=== PATIENT | male | born 1950 | race Caucasian/White ===

== ENCOUNTER 2017-04-15 23:27 | Inpatient (IN) | payer MEDICAID, OTHER ==
[~2017-04-15] VITALS: Ht 177.8 cm; Wt 127.0 kg
[2017-04-16 00:12] LABS: Basophils # (auto) 0.1 uL; Eosinophils # (auto) 0 uL
[2017-04-16 00:14] LABS: Basophils % (auto) 0.7 % (0.0-2.0); Eosinophils % (auto) 0.1 % (0.0-7.0); Hemoglobin 19.5 g/dL (13.5-17.5); Lymphocytes # (auto) 0.6 uL; Mean Corpuscular Hemoglobin 34.6 pg (28.0-32.0); Mean Corpuscular Hgb Conc. 34.4 g/dL (32.0-36.0); Mean Corpuscular Volume 100.3 fL (80.0-100.0); Monocytes % (auto) 10.7 % (0.0-12.0); Neutrophils # (auto) 7.4 uL; Neutrophils % (auto) 81.5 % (37.0-80.0); Nucleated Red Blood Cells % 0.4 %; Platelet Count (auto) 144 10^3/uL (140-450); Red Blood Cells 5.64 10^6/uL (4.5-5.90); Red Cell Distribution Width 13.6 % (11.8-14.3)
[2017-04-16 00:17] LABS: Hematocrit 56.6 % (41.0-53.0)
[2017-04-16 00:25] LABS: Albumin 3.6 g/dL (3.4-5.0); Calcium 8.3 mg/dL (8.5-10.1); Magnesium 2.4 mg/dL (1.6-2.6); Potassium 4.4 mmol/L (3.5-5.1)
[2017-04-16 00:30] LABS: Bilirubin, Total 0.3 mg/dL (0.2-1.0); INR 1.14 (0.9-1.15); Partial Thromboplastin Time 36.8 sec (22.64-33.71); Prothrombin Time 12.4 sec (9.37-12.3); Total Protein 7.4 g/dL (6.4-8.2)
[2017-04-16] MEDS ORDERED: methylPREDNISolone SOD SUCC 125 MG/2 ML VL IV ONE (01:00)
[2017-04-16] MEDS ORDERED: diphenhdrAMINE HCL 50 MG/1 ML VL IV ONE (01:00)
[2017-04-16] MEDS ORDERED: SODIUM CHLORIDE 0.9% 500 ML IV ONE (01:45)
[2017-04-16] MEDS ORDERED: cefTRIAXone 1GM/10ml IVPUSH 10 ML IV ONE (01:45)
[2017-04-16] MEDS ORDERED: NITROGLYCERIN 0.4 MG SL TAB SL PRN (06:00)
[2017-04-16] MEDS ORDERED: cloNIDine HCL 0.1 MG TAB PO PRN (06:00)
[2017-04-16] MEDS ORDERED: MORPHINE SULF INJ 2 MG/ML SYRINGE 1ML IV PRN (06:00)
[2017-04-16] MEDS ORDERED: DOCUSATE SOD 100 MG CAP PO PRN (06:00)
[2017-04-16] MEDS ORDERED: ONDANSETRON HCL 4 MG/2 ML VIAL IV PRN (06:00)
[2017-04-16] MEDS ORDERED: ACETAMINOPHEN 325 MG TAB PO PRN (06:00)
[2017-04-16] MEDS: OSELTAMIVIR 75 MG CAP PO SCH ×3 (06:18→21:54)
[2017-04-16] MEDS: IPRATROPIUM BROM 0.5 MG/2.5ML INH SOL NEB SCH ×5 (06:55→22:34)
[2017-04-16] MEDS: cefTRIAXone 1GM/10ml IVPUSH 10 ML IV SCH (09:45)
[2017-04-16] MEDS: NICOTINE 14 MG/24HR TOPICAL PATCH TD SCH (10:00)
[2017-04-16] MEDS: CARVEDILOL 3.125 MG TAB PO SCH ×2 (10:42→21:53)
[2017-04-16] MEDS: ENOXAPARIN SOD 40 MG/0.4 ML SYRINGE SC SCH (10:43)
[2017-04-16] MEDS: FAMOTIDINE 20 MG TAB PO SCH ×2 (10:43→21:53)
[2017-04-16] MEDS: FUROSEMIDE 20 MG TAB PO SCH (10:43)
[2017-04-16 10:51] VITALS: BP 109/68
[2017-04-16 12:09] LABS: Urine Bacteria NONE SEEN /hpf (None Seen); Urine Blood Negative /uL (Negative); Urine Specific Gravity 1.028 (1.001-1.035); Urine WBC 2 /hpf (0 - 3)
[2017-04-16 19:11] VITALS: BP 113/91
[2017-04-16] MEDS: ALBUTEROL SULF 2.5 MG/0.5ML(0.5%) NEB SOLN NEB PRN ×2 (19:41→22:34)
[2017-04-16 20:00] VITALS: BP 101/59
[2017-04-16] MEDS: ATORVASTATIN 20 MG TAB PO SCH (21:53)
[2017-04-16] MEDS: HYDROcodone-ACET 5/325MG TAB PO PRN (21:54)
[2017-04-16 22:00] VITALS: BP 111/72
[2017-04-17] MEDS: IPRATROPIUM BROM 0.5 MG/2.5ML INH SOL NEB SCH ×6 (02:18→22:37)
[2017-04-17] MEDS: ALBUTEROL SULF 2.5 MG/0.5ML(0.5%) NEB SOLN NEB PRN ×4 (02:18→22:37)
[2017-04-17 05:00] VITALS: BP 109/72
[2017-04-17 06:45] LABS: Basophils # (auto) 0 uL; Basophils % (auto) 0.4 % (0.0-2.0); Eosinophils # (auto) 0 uL; Eosinophils % (auto) 0.1 % (0.0-7.0); Hematocrit 47.4 % (41.0-53.0); Hemoglobin 15.8 g/dL (13.5-17.5); Lymphocytes # (auto) 1.1 uL; Lymphocytes % (auto) 15.5 % (10.0-50.0); Mean Corpuscular Hemoglobin 33.9 pg (28.0-32.0); Mean Corpuscular Hgb Conc. 33.2 g/dL (32.0-36.0); Mean Corpuscular Volume 101.9 fL (80.0-100.0); Monocytes # (auto) 0.9 uL; Monocytes % (auto) 13.4 % (0.0-12.0); Neutrophils # (auto) 4.9 uL; Neutrophils % (auto) 70.6 % (37.0-80.0); Platelet Count (auto) 147 10^3/uL (140-450); Red Blood Cells 4.66 10^6/uL (4.5-5.90); Red Cell Distribution Width 13.2 % (11.8-14.3); White Blood Cell 6.9 10^3/uL (4.4-10.8)
[2017-04-17 07:10] LABS: Albumin 2.9 g/dL (3.4-5.0); BUN/Creatinine Ratio 61.9; Bilirubin, Total 0.3 mg/dL (0.2-1.0); Calcium 7.5 mg/dL (8.5-10.1); Potassium 4.7 mmol/L (3.5-5.1); Total Protein 5.9 g/dL (6.4-8.2)
[2017-04-17 08:00] VITALS: BP 105/66
[2017-04-17] MEDS ORDERED: DEXTROSE (50%) 50ML SYRG IV PRN ×2 (08:30→15:15)
[2017-04-17 09:03] VITALS: BP 105/66
[2017-04-17] MEDS: CARVEDILOL 3.125 MG TAB PO SCH ×2 (10:30→22:00)
[2017-04-17] MEDS: FAMOTIDINE 20 MG TAB PO SCH ×2 (10:30→22:01)
[2017-04-17] MEDS: OSELTAMIVIR 75 MG CAP PO SCH ×2 (10:31→22:01)
[2017-04-17] MEDS: ENOXAPARIN SOD 40 MG/0.4 ML SYRINGE SC SCH (10:32)
[2017-04-17] MEDS: FUROSEMIDE 20 MG TAB PO SCH (10:32)
[2017-04-17] MEDS: cefTRIAXone 1GM/10ml IVPUSH 10 ML IV SCH (10:34)
[2017-04-17] MEDS: NICOTINE 14 MG/24HR TOPICAL PATCH TD SCH (10:35)
[2017-04-17] MEDS ORDERED: InsuLIN REG 1unit/0.01ml Soln (100units/ml) SC SCH ×2 (11:30→22:00)
[2017-04-17] MEDS ORDERED: ACCU-CHEK COMFORT CURVE STRIP VI SCH (11:30)
[2017-04-17 13:28] VITALS: BP 100/66
[2017-04-17] MEDS: glipiZIDE 5 MG TAB PO SCH (13:36)
[2017-04-17] MEDS ORDERED: INSULIN NPH Isophane (HUMAN) 1unit/0.01ml Susp(100units/ml) SC ONE (15:15)
[2017-04-17] MEDS: HYDROcodone-ACET 5/325MG TAB PO PRN (15:39)
[2017-04-17] MEDS: ACCU-CHEK COMFORT CURVE STRIP VI SCH ×2 (18:00→23:46)
[2017-04-17] MEDS: InsuLIN REG 1unit/0.01ml Soln (100units/ml) SC SCH ×2 (18:00→23:46)
[2017-04-17 22:00] VITALS: BP 98/67
[2017-04-17] MEDS: ATORVASTATIN 20 MG TAB PO SCH (22:01)
[2017-04-18] MEDS: ALBUTEROL SULF 2.5 MG/0.5ML(0.5%) NEB SOLN NEB PRN (02:22)
[2017-04-18] MEDS: IPRATROPIUM BROM 0.5 MG/2.5ML INH SOL NEB SCH ×3 (02:22→10:00)
[2017-04-18 05:56] VITALS: BP 108/64
[2017-04-18] MEDS: InsuLIN REG 1unit/0.01ml Soln (100units/ml) SC SCH ×2 (05:56→11:20)
[2017-04-18] MEDS: glipiZIDE 5 MG TAB PO SCH (05:56)
[2017-04-18] MEDS: ACCU-CHEK COMFORT CURVE STRIP VI SCH ×2 (05:56→11:20)
[2017-04-18 08:58] VITALS: BP 91/61
[2017-04-18] MEDS: CARVEDILOL 3.125 MG TAB PO SCH (10:00)
[2017-04-18] MEDS: ENOXAPARIN SOD 40 MG/0.4 ML SYRINGE SC SCH (10:00)
[2017-04-18] MEDS: FUROSEMIDE 20 MG TAB PO SCH (10:00)
[2017-04-18] MEDS: cefTRIAXone 1GM/10ml IVPUSH 10 ML IV SCH (10:02)
[2017-04-18] MEDS: FAMOTIDINE 20 MG TAB PO SCH (10:03)
[2017-04-18] MEDS: OSELTAMIVIR 75 MG CAP PO SCH (10:04)
[2017-04-18] MEDS: NICOTINE 14 MG/24HR TOPICAL PATCH TD SCH (10:04)
[2017-04-18 13:00] VITALS: BP 99/58
== END 2017-04-18 14:08 | disposition home or self-care (01) | DRG 140 ==
LOC: EDBD 23:27 → ER 23:27 → TELE 23:28 → TELE-EAST 04-16 18:45
PROVIDERS: ADMIT Nurse Practitioner; ATTEND Internal Medicine
DX: J44.1 Chronic obstructive pulmonary disease with (acute) exacerbation (principal); J96.20 Acute and chronic respiratory failure, unspecified whether with hypoxia or hypercapnia; I11.0 Hypertensive heart disease with heart failure; I50.9 Heart failure, unspecified; E11.65 Type 2 diabetes mellitus with hyperglycemia; E87.1 Hypo-osmolality and hyponatremia; J10.1 Influenza due to other identified influenza virus with other respiratory manifestations; E86.0 Dehydration; E78.5 Hyperlipidemia, unspecified; E66.01 Morbid (severe) obesity due to excess calories; Z68.41 Body mass index [BMI] 40.0-44.9, adult; Z87.891 Personal history of nicotine dependence
CPT/HCPCS: 36415; 36600; 71045; 80053; 81001; 82805; 82962; 83036; 83605; 83735; 83880; 84484; 85025; 85379; 85610; 85730; 87040; 87400; 93005; 94640; 96361; 96372; 96374; 96375; 96376; J1815

== ENCOUNTER 2021-12-18 17:54 | Inpatient (IN) | payer MEDICARE, OTHER ==
[~2021-12-18] VITALS: Ht 172.7 cm; Wt 80.0 kg
[~2021-12-18 17:54] MED LIST: ALBUAER3 IN; CARV6.2551 PO; CHOL20007 PO; FLAX10003 PO; FURO40TA4 PO; LEVO750T8 PO; LOSA-39 PO; METF-370 PO; MULTTAB99 PO; NIC21P TOP; PANT40T PO; POTA10TA51 PO
[2021-12-18] MEDS ORDERED: IPRATROPIUM BROM 0.5 MG/2.5ML INH SOL NEB ONE (18:30)
[2021-12-18] MEDS ORDERED: ALBUTEROL SULF 2.5 MG/0.5ML(0.5%) NEB SOLN NEB ONE (18:30)
[2021-12-18] MEDS ORDERED: methylPREDNISolone SOD SUCC 125 MG/2 ML VL IV ONE (18:30)
[2021-12-18 19:14] LABS: Basophils # (auto) 0 10 ^3/uL (0-0.2); Eosinophils # (auto) 0.1 10 ^3/uL (0-0.8); Lymphocytes # (auto) 1.1 10 ^3/uL (0.4-5.4); Neutrophils # (auto) 6.4 10 ^3/uL (1.6-8.6); White Blood Cell 8.4 10^3/uL (4.4-10.8)
[2021-12-18 19:16] LABS: Basophils % (auto) 0.5 % (0.0-2.0); Eosinophils % (auto) 1.7 % (0.0-7.0); Hemoglobin 18.6 g/dL (13.5-17.5); Lymphocytes % (auto) 13.1 % (10.0-50.0); Mean Corpuscular Hemoglobin 32.4 pg (28.0-32.0); Mean Corpuscular Hgb Conc. 32.3 g/dL (32.0-36.0); Mean Corpuscular Volume 100.4 fL (80.0-100.0); Monocytes # (auto) 0.8 10 ^3/uL (0-1.3); Monocytes % (auto) 9.1 % (0.0-12.0); Neutrophils % (auto) 75.6 % (37.0-80.0); Nucleated Red Blood Cells % 0.1 %; Red Blood Cells 5.74 10^6/uL (4.5-5.90); Red Cell Distribution Width 15.1 % (11.8-14.3)
[2021-12-18 19:20] LABS: Albumin 4.2 g/dL (3.4-5.0); Calcium 9.2 mg/dL (8.5-10.1); Potassium 4.4 mmol/L (3.5-5.1)
[2021-12-18 19:21] LABS: Hematocrit 57.6 % (41.0-53.0)
[2021-12-18 19:29] LABS: Bilirubin, Total 0.5 mg/dL (0.2-1.0); Total Protein 7.1 g/dL (6.4-8.2)
[2021-12-18] MEDS ORDERED: levoFLOXacin 250 MG TAB PO ONE (19:30)
[2021-12-18] MEDS ORDERED: TEMAZEPAM 15 MG CAP PO PRN (21:15)
[2021-12-18] MEDS ORDERED: ONDANSETRON HCL 4 MG/2 ML VIAL IV PRN (21:15)
[2021-12-18] MEDS ORDERED: ACETAMINOPHEN 325 MG TAB PO PRN (21:15)
[2021-12-18] MEDS ORDERED: AZITHROMYCIN 500MG/ 250ML 250 ML IV ONE (21:15)
[2021-12-18] MEDS ORDERED: NITROGLYCERIN 0.4 MG SL TAB SL PRN (21:15)
[2021-12-18] MEDS ORDERED: ALBUTEROL SULF 2.5 MG/0.5ML(0.5%) NEB SOLN NEB PRN (21:15)
[2021-12-18] MEDS ORDERED: MORPHINE SULFATE INJ 2 MG/ml SYRG IV PRN (21:15)
[2021-12-18 21:30] VITALS: BP 120/88
[2021-12-18] MEDS ORDERED: CARVEDILOL 3.125 MG TAB PO SCH (22:00)
[2021-12-18] MEDS ORDERED: LOSARTAN POTASSIUM 50 MG TAB PO SCH (22:00)
[2021-12-19] MEDS ORDERED: IPRATROPIUM BROM 0.5 MG/2.5ML INH SOL NEB SCH (06:00)
[2021-12-19 06:12] LABS: Basophils # (auto) 0 10 ^3/uL (0-0.2); Eosinophils # (auto) 0 10 ^3/uL (0-0.8); Eosinophils % (auto) 0.1 % (0.0-7.0); Lymphocytes # (auto) 0.4 10 ^3/uL (0.4-5.4); Mean Corpuscular Hgb Conc. 32.4 g/dL (32.0-36.0); Monocytes # (auto) 0.2 10 ^3/uL (0-1.3); Neutrophils # (auto) 5.3 10 ^3/uL (1.6-8.6); Nucleated Red Blood Cells % 0.1 %; White Blood Cell 5.9 10^3/uL (4.4-10.8)
[2021-12-19 06:16] LABS: Basophils % (auto) 0.2 % (0.0-2.0); Hemoglobin 18.2 g/dL (13.5-17.5); Lymphocytes % (auto) 7.2 % (10.0-50.0); Mean Corpuscular Hemoglobin 32.6 pg (28.0-32.0); Mean Corpuscular Volume 100.8 fL (80.0-100.0); Monocytes % (auto) 2.8 % (0.0-12.0); Neutrophils % (auto) 89.7 % (37.0-80.0); Red Blood Cells 5.59 10^6/uL (4.5-5.90); Red Cell Distribution Width 15.1 % (11.8-14.3)
[2021-12-19 06:30] LABS: BUN/Creatinine Ratio 26.5; Calcium 8.7 mg/dL (8.5-10.1); Potassium 4.9 mmol/L (3.5-5.1)
[2021-12-19 06:50] LABS: Hematocrit 56.3 % (41.0-53.0)
[2021-12-19] MEDS ORDERED: LEVO500T31 PO (06:55)
[2021-12-19] MEDS ORDERED: METH4PAK PO (06:55)
[2021-12-19 09:00] VITALS: BP 130/72
[2021-12-19] MEDS ORDERED: POTASSIUM CHL 10 Meq TABLET PO SCH (10:00)
[2021-12-19] MEDS ORDERED: PANTOPRAZOLE 40 MG TAB PO SCH (10:00)
[2021-12-19] MEDS ORDERED: AZITHROMYCIN 500MG/ 250ML 250 ML IV SCH (10:00)
[2021-12-19] MEDS ORDERED: ENOXAPARIN SOD 40 MG/0.4 ML SYRINGE SC SCH (10:00)
[2021-12-19] MEDS ORDERED: FUROSEMIDE 40 MG TAB PO SCH (10:00)
[2021-12-19] MEDS ORDERED: DexAMETHasone SOD PHOS 10MG/1ML VIAL INJ IV SCH (10:00)
== END 2021-12-19 09:15 | disposition left against medical advice (07) | DRG 189 ==
LOC: EDBD 17:54 → ER 18:03 → TELE 21:25
PROVIDERS: ADMIT Nurse Practitioner; ATTEND Internal Medicine
DX: J96.21 Acute and chronic respiratory failure with hypoxia (principal); J44.1 Chronic obstructive pulmonary disease with (acute) exacerbation; J44.0 Chronic obstructive pulmonary disease with (acute) lower respiratory infection; I11.0 Hypertensive heart disease with heart failure; E11.9 Type 2 diabetes mellitus without complications; I50.9 Heart failure, unspecified; Z20.822 Contact with and (suspected) exposure to COVID-19; E78.5 Hyperlipidemia, unspecified; Z87.891 Personal history of nicotine dependence
CPT/HCPCS: 36415; 36600; 71045; 80048; 80053; 82805; 83605; 83615; 83880; 84484; 85025; 87804; 93005; 94640; 96365; 96366; G0378

== ENCOUNTER 2022-05-17 12:27 | Emergency (ER) | payer OTHER ==
[~2022-05-17] VITALS: Ht 172.7 cm; Wt 84.9 kg
[~2022-05-17 12:27] MED LIST changes: +LEVO500T31 PO; +METH4PAK PO
[2022-05-17 13:15] LABS: Basophils # (auto) 0 10 ^3/uL (0-0.2); Eosinophils # (auto) 0.1 10 ^3/uL (0-0.8); Neutrophils # (auto) 6.1 10 ^3/uL (1.6-8.6); Nucleated Red Blood Cells % 0.1 %; Red Cell Distribution Width 14.3 % (11.8-14.3); White Blood Cell 8.2 10^3/uL (4.4-10.8)
[2022-05-17 13:17] LABS: Basophils % (auto) 0.4 % (0.0-2.0); Eosinophils % (auto) 1.5 % (0.0-7.0); Hematocrit 55.5 % (41.0-53.0); Hemoglobin 18.6 g/dL (13.5-17.5); Lymphocytes # (auto) 1.3 10 ^3/uL (0.4-5.4); Lymphocytes % (auto) 15.9 % (10.0-50.0); Mean Corpuscular Hemoglobin 34.1 pg (28.0-32.0); Mean Corpuscular Hgb Conc. 33.5 g/dL (32.0-36.0); Monocytes # (auto) 0.7 10 ^3/uL (0-1.3); Neutrophils % (auto) 74.2 % (37.0-80.0); Red Blood Cells 5.44 10^6/uL (4.5-5.90)
[2022-05-17 13:32] LABS: Albumin 4.6 g/dL (3.4-5.0); Calcium 9.8 mg/dL (8.5-10.1); Potassium 4.7 mmol/L (3.5-5.1)
[2022-05-17 13:36] LABS: BUN/Creatinine Ratio 17.4; Bilirubin, Total 0.7 mg/dL (0.2-1.0); Total Protein 7.7 g/dL (6.4-8.2)
[2022-05-17] MEDS ORDERED: CEPH-510 PO (16:13)
[2022-05-17 16:23] VITALS: BP 126/67
== END 2022-05-17 16:24 | disposition home or self-care (01) ==
LOC: ER 12:27
DX: L03.115 Cellulitis of right lower limb (principal); I11.0 Hypertensive heart disease with heart failure; I50.9 Heart failure, unspecified; E78.5 Hyperlipidemia, unspecified; J44.9 Chronic obstructive pulmonary disease, unspecified; E11.9 Type 2 diabetes mellitus without complications; F17.210 Nicotine dependence, cigarettes, uncomplicated; I87.2 Venous insufficiency (chronic) (peripheral)
CPT/HCPCS: 36415; 71045; 80053; 83880; 84484; 85025; 93971

== ENCOUNTER 2023-10-19 06:25 | Emergency (ER) | payer OTHER ==
[~2023-10-19] VITALS: Ht 170.2 cm; Wt 82.7 kg
[~2023-10-19 06:25] MED LIST changes: +CEPH-510 PO; -FLAX10003 PO; +FLAX1CAP9 PO; -LOSA-39 PO; +LOSA-535 PO; +POTA-36 PO; -POTA10TA51 PO
[2023-10-19 08:26] LABS: Basophils # (auto) 0 10 ^3/uL (0-0.2); Eosinophils # (auto) 0.1 10 ^3/uL (0-0.8); Lymphocytes # (auto) 0.9 10 ^3/uL (0.4-5.4); Nucleated Red Blood Cells % 0.2 %
[2023-10-19 08:30] LABS: Basophils % (auto) 0.4 % (0.0-2.0); Eosinophils % (auto) 1.8 % (0.0-7.0); Hemoglobin 17.9 g/dL (13.5-17.5); Lymphocytes % (auto) 11.4 % (10.0-50.0); Mean Corpuscular Hemoglobin 34.6 pg (28.0-32.0); Mean Corpuscular Hgb Conc. 33.8 g/dL (32.0-36.0); Mean Corpuscular Volume 102.4 fL (80.0-100.0); Monocytes # (auto) 0.7 10 ^3/uL (0-1.3); Monocytes % (auto) 9.3 % (0.0-12.0); Neutrophils # (auto) 6.1 10 ^3/uL (1.6-8.6); Neutrophils % (auto) 77.1 % (37.0-80.0); Red Blood Cells 5.18 10^6/uL (4.5-5.90); Red Cell Distribution Width 13.8 % (11.8-14.3); White Blood Cell 7.9 10^3/uL (4.4-10.8)
[2023-10-19 08:45] LABS: INR 1.18 (0.9-1.15); Partial Thromboplastin Time 31.1 SEC (24.5-34.5); Prothrombin Time 12.4 sec (9.3-11.8)
[2023-10-19 08:50] LABS: Alanine Aminotransferase 13 U/L (7-40); Albumin 4.7 g/dL (3.2-4.8); Alkaline Phosphatase 32 U/L (46-116); Anion Gap 0 (5-15); Aspartate Aminotransferase 13 U/L (13-40); BUN/Creatinine Ratio 21.1 (10.0-20.0); Blood Urea Nitrogen 19 mg/dL (9-23); Calcium 9.8 mg/dL (8.7-10.4); Carbon Dioxide 35 mmol/L (20-30); Chloride 104 mmol/L (98-107); Glucose 95 mg/dL (74-106); Potassium 4.7 mmol/L (3.5-5.1); Sodium 139 mmol/L (136-145)
[2023-10-19 08:51] LABS: Bilirubin, Total 0.6 mg/dL (0.2-1.0)
[2023-10-19] MEDS ORDERED: CEPH250C PO (10:46)
[2023-10-19] MEDS ORDERED: CLIN1CAP70 PO (10:46)
[2023-10-19] MEDS: cefTRIAXone 1GM/50ML D5W 50 ML IV ONE (11:13)
[2023-10-19] MEDS: CLINDAMYCIN 600MG IV 50 ML IV ONE (11:42)
[2023-10-19 12:50] VITALS: BP 107/53; PULSE 91; RESP 16; TEMP 97; O2SAT 99
== END 2023-10-19 12:51 | disposition home or self-care (01) ==
LOC: ER 06:25
DX: L03.116 Cellulitis of left lower limb (principal); L02.416 Cutaneous abscess of left lower limb; E11.65 Type 2 diabetes mellitus with hyperglycemia; I11.0 Hypertensive heart disease with heart failure; I50.32 Chronic diastolic (congestive) heart failure; E78.5 Hyperlipidemia, unspecified; J44.9 Chronic obstructive pulmonary disease, unspecified; F17.210 Nicotine dependence, cigarettes, uncomplicated; Z79.899 Other long term (current) drug therapy
CPT/HCPCS: 36415; 71045; 80053; 84484; 85025; 85610; 85730; 93005; 96365; 96367; 99285; J0696; J3490

== ENCOUNTER 2023-11-09 13:56 | Emergency (ER) | payer OTHER ==
[~2023-11-09] VITALS: Ht 170.2 cm; Wt 83.1 kg
[~2023-11-09 13:56] MED LIST changes: +CEPH250C PO; +CLIN1CAP70 PO
[2023-11-09 14:33] LABS: Basophils # (auto) 0 10 ^3/uL (0-0.2); Basophils % (auto) 0.5 % (0.0-2.0); Eosinophils # (auto) 0.2 10 ^3/uL (0-0.8); Eosinophils % (auto) 2.5 % (0.0-7.0); Hematocrit 53.4 % (41.0-53.0); Lymphocytes # (auto) 0.9 10 ^3/uL (0.4-5.4); Lymphocytes % (auto) 12.7 % (10.0-50.0); Mean Corpuscular Hemoglobin 34.2 pg (28.0-32.0); Mean Corpuscular Hgb Conc. 33.8 g/dL (32.0-36.0); Mean Corpuscular Volume 101.3 fL (80.0-100.0); Monocytes # (auto) 0.7 10 ^3/uL (0-1.3); Monocytes % (auto) 10.1 % (0.0-12.0); Neutrophils # (auto) 5.5 10 ^3/uL (1.6-8.6); Neutrophils % (auto) 74.2 % (37.0-80.0); Nucleated Red Blood Cells % 0.2 %; Red Blood Cells 5.28 10^6/uL (4.5-5.90); White Blood Cell 7.4 10^3/uL (4.4-10.8)
[2023-11-09 14:50] LABS: Calcium 10.1 mg/dL (8.7-10.4); Carbon Dioxide 34 mmol/L (20-30)
[2023-11-09 14:55] LABS: BUN/Creatinine Ratio 15.7 (10.0-20.0); Blood Urea Nitrogen 13 mg/dL (9-23); Glucose 86 mg/dL (74-106)
[2023-11-09 15:00] VITALS: RESP 20; O2SAT 95
[2023-11-09] MEDS: methylPREDNISolone SOD SUCC 125 MG/2 ML VL IV ONE (15:00)
[2023-11-09] MEDS: IOHEXOL 350 MG/ML 100ML IJ ONE (15:04)
[2023-11-09 15:09] LABS: Anion Gap 2 (5-15); Chloride 103 mmol/L (98-107); Sodium 139 mmol/L (136-145)
[2023-11-09] MEDS ORDERED: AZIT500T PO (16:39)
[2023-11-09] MEDS ORDERED: METH4PAK PO (16:40)
[2023-11-09 19:04] VITALS: TEMP 98.6
[2023-11-09 20:11] VITALS: BP 129/59; PULSE 93; RESP 20; O2SAT 94
== END 2023-11-09 20:44 | disposition home or self-care (01) ==
LOC: EDBD 13:56 → ER 13:57
DX: J44.1 Chronic obstructive pulmonary disease with (acute) exacerbation (principal); J20.9 Acute bronchitis, unspecified; E11.9 Type 2 diabetes mellitus without complications; E78.5 Hyperlipidemia, unspecified; I11.0 Hypertensive heart disease with heart failure; I50.89 Other heart failure; F17.210 Nicotine dependence, cigarettes, uncomplicated
CPT/HCPCS: 36415; 71045; 71275; 80048; 83605; 83880; 84484; 85025; 85379; 87040; 93005; 96374; 99285; J2919; Q9967